=== PATIENT | female | born 1945 | race Asian ===

== ENCOUNTER 2022-05-20 10:45 | Outpatient (CLI) | payer MEDICARE, SELFPAY | END 2022-05-20 10:46 | disposition home or self-care (01) | PROVIDERS: PCP Physician Assistant Medical; Visit Provider Physician Assistant Medical | DX: Z00.00 Encounter for general adult medical examination without abnormal findings (principal); E78.5 Hyperlipidemia, unspecified; I10 Essential (primary) hypertension; E87.6 Hypokalemia; E55.9 Vitamin D deficiency, unspecified | CPT/HCPCS: 80053; 80061; 84443; 87086 ==

== ENCOUNTER 2022-05-28 09:57 | Outpatient (CLI) | payer MEDICARE, SELFPAY ==
--- NOTE | 2022-05-28 10:15 | CRLHL7_ITS ---
For Patients: As a result of the Century Cures Act, medical imaging exams and procedure reports are released immediately into your electronic medical record. You may view this report before your referring provider. If you have questions, please contact your health care provider. Indication: Renal artery stenosis. Comparison: None. Technique: MRI of the abdomen was performed with the following sequences: axial and coronal T2 weighted, axial T2 fat saturated, axial diffusion, axial T1 in and out of phase, axial and coronal 3D T1 weighted before and after intravenous contrast administration. Contrast: 20 mL Dotarem Findings: Kidneys: Enhance symmetrically without hydronephrosis. Moderate right renal artery ostial stenosis. Left renal artery appears widely patent. Liver: Noncirrhotic morphology. Benign-appearing cyst. No suspicious enhancing lesions. Gallbladder: Multiple small T2 hyperintense mural cystic lesions without abnormal enhancement predominantly at the gallbladder fundus most consistent with adenomyomatosis. Biliary system: No biliary distention, filling defect, mass or stricture. Other abdominal organs: Spleen, pancreas, and adrenal glands are without concerning focal pathology. Bone marrow signal: Normal Other findings: No lymphadenopathy or ascites Impression: 1. Moderate right renal artery ostial stenosis. Left renal artery appears patent without evidence for stenosis. 2. Mural cystic lesions predominantly within the gallbladder fundus most consistent with gallbladder adenomyomatosis. Dictated by Neftaly Mcgregor MD @ 05/28/2022 1:27:03 PM (Electronically Signed)
== END 2022-05-28 09:58 | disposition home or self-care (01) ==
PROVIDERS: PCP Physician Assistant Medical; Visit Provider Physician Assistant Medical
DX: I70.1 Atherosclerosis of renal artery (principal); K80.20 Calculus of gallbladder without cholecystitis without obstruction; I10 Essential (primary) hypertension
CPT/HCPCS: 74185; A9575

== ENCOUNTER 2022-10-16 13:08 | Outpatient (CLI) | payer MEDICARE, SELFPAY | END 2022-10-16 13:09 | disposition home or self-care (01) | LOC: NFLDREF 10-19 09:58 | PROVIDERS: PCP Physician Assistant Medical; Referring Provider Physician Assistant Medical; Visit Provider Physician Assistant Medical | DX: R79.89 Other specified abnormal findings of blood chemistry (principal); Z11.59 Encounter for screening for other viral diseases; Z11.3 Encounter for screening for infections with a predominantly sexual mode of transmission | CPT/HCPCS: 80076; 86703; 86803 ==

== ENCOUNTER 2023-05-22 10:39 | Outpatient (CLI) | payer MEDICARE, SELFPAY | END 2023-05-22 10:40 | disposition home or self-care (01) | PROVIDERS: PCP Physician Assistant Medical; Visit Provider Physician Assistant Medical | DX: Z00.00 Encounter for general adult medical examination without abnormal findings (principal); R79.89 Other specified abnormal findings of blood chemistry; E55.9 Vitamin D deficiency, unspecified; E87.6 Hypokalemia; E78.5 Hyperlipidemia, unspecified; I10 Essential (primary) hypertension; M81.0 Age-related osteoporosis without current pathological fracture; Z13.0 Encounter for screening for diseases of the blood and blood-forming organs and certain disorders involving the immune mechanism; Z13.6 Encounter for screening for cardiovascular disorders; Z13.1 Encounter for screening for diabetes mellitus | CPT/HCPCS: 80053; 80061; 84443; 87086 ==

== ENCOUNTER 2023-06-11 10:39 | Outpatient (CLI) | payer MEDICARE, SELFPAY ==
--- OUTSIDE RECORDS SUMMARY | 2023-06-11 10:42 | XMS_ITS | Clinical Summary ---
Author Name Unknown Organization [facility] Address [address] [place] [address] Care Team Providers Care Food Assembler Commissary Kitchen Name Role Phone Unavailable Primary Care Provider Unavailabl e Source Comments Patient records contain information from all sites at [facility]. For routine questions regarding patient records, call [phone] during business hours, M-F 8:00 AM - 5:00 PM Central Time. Record requests for emergency care only can be directed to [phone] at any time.[facility] Social History Tobacco Use Types Packs/Day Years Used Date Smoking Tobacco: Never Assessed Nutrition Answer Date Recorded Nutrition: EVOO Fat Source Unknown 06/21 Nutrition: Servings of Fruits/Vegetables per Day Not on file 06/21/2022 Dental Answer Date Recorded Dental: Regular Dentist Unknown 06/22/19 23 Sex and Gender Information Value Date Recorded Sex Assigned at Not on file Gender Identity Not on file Sexual Orientation Not on file Plan of Treatment Health Maintenance Due Date Last Done Comments Hepatitis C Screening 1945 DTaP,Tdap,and Td Vaccines (1 - Tdap) 1965 Zoster Vaccines (1 of 2) 1996 Pneumococcal vaccine (65+ years) (1 of 1 - PCV) 2011 COVID-19 Vaccine (1 - 2022-24 season) 2022 Influenza Vaccine (#1) 2022 Depression Screening (Annual PHQ-2) 02/24/2023 Fall Risk Screen (Annual) 02/24/2023
--- OUTSIDE RECORDS SUMMARY | 2023-06-11 10:42 | XMS_ITS | Referral Summary ---
Author Name Unknown Organization [facility] Address [address] [place] [address] Care Team Providers Care Pier Runner Name Role Phone Unavailable Primary Care Provider Unavailabl e Source Comments Patient records contain information from all sites at [facility]. For routine questions regarding patient records, call [phone] during business hours, M-F 8:00 AM - 5:00 PM Central Time. Record requests for emergency care only can be directed to [phone] at any time.[facility] Social History Tobacco Use Types Packs/Day [...] Orientation Not on file Plan of Treatment Not on file
--- OUTSIDE RECORDS SUMMARY | 2023-06-11 10:42 | XMS_ITS ---
Author Name Unknown Organization [facility] Address [address] [place] [address] Care Team Providers Care Foundry Patternmaker Name Role Phone Unavailable Unavailable Unavailable Surgery Details Not on file Complications Check Surgery Details section. Procedure Estimated Blood Loss Check Surgery Details section. Procedure Findings Check Surgery Details section. Procedure Specimens Taken Check Surgery Details section.
--- NOTE | 2023-06-11 11:00 | US_ITS ---
Patient: THA MYERS Facility:?[facility] Patient ID:?[id number] Site Patient ID:?[id number]. Site :?1945 Study:?US-Abdomen -06/11/2023 1:07:46 PM Ordering Physician:?Erica Aquino Final Report: INDICATION: Renal artery stenosis TECHNIQUE: Grayscale, color Doppler and power Doppler evaluation of the kidneys and renal arteries performed. COMPARISON: MR angiogram 05/28/2022 FINDINGS: BILATERAL RENAL ARTERY DUPLEX ULTRASOUND ABDOMINAL AORTA: Peak systolic velocity = 50 cm/s. No aortic aneurysm. RIGHT KIDNEY: 9.5 cm in length. There is no hydronephrosis. Renal cortex measures 1.2 cm. Peak systolic velocity = 118 cm/second. There is blunting and spectral broadening of the waveform at the origin. Right renal artery measures 3 millimeters at the origin. Renal artery to aortic peak systolic velocity ratio = 2.4 Resistive indices: 0.7 Renal vein = patent LEFT KIDNEY: 9.8 cm in length. There is no hydronephrosis. Renal cortex measures 1.2 cm. Peak systolic velocity = 178 cm/second at the origin. Left renal artery measures 6 millimeters at the origin. Renal artery to aortic peak systolic velocity ratio = 3.6 Resistive indices: 0.6-0.7 Renal vein = patent Incidental simple cyst in the right hepatic lobe measures 2.3 x 2.1 x 2.6 cm. IMPRESSION: Blunting of the waveform with spectral broadening at the origin of the right renal artery corresponding to the ostial stenosis on prior MR angiogram. However, the velocity measurement is not elevated measuring 118 cm/second. Elevated velocity at the left renal artery origin measuring 178 cm/second with a renal artery ratio is 3.6 suggesting possible stenosis. Dictated by Mario Mcmullen MD @ 06/11/2023 1:16:46 PM Signed by:?Mario Mcmullen MD @06/11/2023 1:16:46 PM (Electronic Signature)
== END 2023-06-11 10:40 | disposition home or self-care (01) ==
LOC: US 10:40
PROVIDERS: PCP Physician Assistant Medical; Visit Provider Internal Medicine Nephrology
DX: I70.1 Atherosclerosis of renal artery (principal); I10 Essential (primary) hypertension
CPT/HCPCS: 76775; 93975

== ENCOUNTER 2023-06-18 10:49 | Outpatient (CLI) | payer MEDICARE, SELFPAY ==
--- OUTSIDE RECORDS SUMMARY | 2023-06-18 10:58 | XMS_ITS | Clinical Summary ---
Author Name Unknown Organization [facility] Address [address] [place] [address] Care Team Providers Care Store Stock Help Name Role Phone Unavailable Primary Care Provider Unavailabl e Source Comments Patient records contain information from all sites at [facility]. For routine questions regarding patient records, call [phone] during business hours, M-F 8:00 AM - 5:00 PM Central Time. Record requests for emergency care only can be directed to [phone] at any time.[facility] Social History Tobacco Use Types Packs/Day [...]
--- OUTSIDE RECORDS SUMMARY | 2023-06-18 10:58 | XMS_ITS | Referral Summary ---
Author Name Unknown Organization [facility] Address [address] [place] [address] Care Team Providers Care Quartz Mounter Name Role Phone Unavailable Primary Care Provider Unavailabl e Source Comments Patient records contain information from all sites at [facility]. For routine questions regarding patient records, call [phone] during business hours, M-F 8:00 AM - 5:00 PM Central Time. Record requests for emergency care only can be directed to [phone] at any time.[facility] Social History Tobacco Use Types Packs/Day Years [...]
--- OUTSIDE RECORDS SUMMARY | 2023-06-18 10:58 | XMS_ITS ---
Author Name Unknown Organization [facility] Address [address] [place] [address] Care Team Providers Care Motor Builder Assembler Name Role Phone Unavailable Unavailable Unavailable Surgery Details Not on file Complications Check Surgery Details section. Procedure Estimated Blood Loss Check Surgery Details section. Procedure Findings Check Surgery Details section. Procedure Specimens Taken Check Surgery Details section.
--- NOTE | 2023-06-18 11:00 | XR_ITS ---
Patient: THA MYERS Facility:?[facility] Patient ID:?[id number] Site Patient ID:?[id number]. Site :?1945 Study:?DEXA-Bone Density -06/18/2023 12:06:43 PM Ordering Physician:DIEGO Final Report: DXA BONE MINERAL DENSITY STUDY Reason for exam: Screening. Current height (in): 61.0. Weight (lb): 120.0. Menopause age: 51. Ethnicity: A (per patient questionnaire). 1. Have you had a previous hip or vertebral fracture? No. 2. Have you had any fractures during your adult life which did not result from significant trauma (e.g., auto accident)? No. 3. Did either of your parents have a hip fracture? No. 4. Do you smoke? No. 5. Have you ever taken Glucocorticoids? No. 6. Do you have rheumatoid arthritis? No. 7. Do you have secondary osteoporosis? No. 8. Do you drink 3 or more alcoholic drinks per day? No. 9. Are you being treated for osteoporosis? No. 10. Have you ever taken any of the following medications: Actonel, Evista, Fosamax, Miacalcin, Reclast, Boniva, Forteo, HRT (i.e. estrogen/hormone therapy), Protelos, Prolia, Vitamin D, Calcium, other ? please specify. ANSWER: Yes, Fosamax, vitamin D, multivitamin, Prolia, calcium. 11. Do you have any of the following medical conditions: Anorexia or bulimia, asthma or emphysema, end stage renal disease, hyperparathyroidism, any seizure disorders, cancer, inflammatory bowel diseases, hysterectomy, other ? please specify. ANSWER: No. 12. What was your maximum height (inches)? 62. 13. Do you perform weight bearing exercise regularly? Yes. 14. Do you regularly consume dairy products? Yes. 15. Do you drink caffeinated beverages? Yes. 16. At what age did your period start? 14. 17. Are you premenopausal? No. 18. How many full term pregnancies have you had? 1. 19. Have you ever missed your period for more than 6 months in a row (not including or menopause)? No. TECHNIQUE: Bone mineral density study was performed using the [employer]. FINDINGS: The results of the study expressed as bone mineral density (BMD) are as follows: Lumbar spine L1 to L3: BMD: 0.827 g/cm2. T-score: -1.7. Z-score: 0.7. Neck Left: BMD: 0.572 g/cm2. T-score: -2.5. Z-score: -0.3. Right: BMD: 0.603 g/cm2. T-score: -2.2. Z-score: -0.1. Total Left: BMD: 0.792 g/cm2. T-score: -1.2. Z-score: 0.6. Right: BMD: 0.773 g/cm2. T-score: -1.4. Z-score: 0.5. IMPRESSION: Osteoporosis. *Comparison exams done prior to 07/2019 were performed on different unit, [email or web address]. COMPARISON: Compared with scan of 05/17/2021, the bone mineral density has increased by 2.7 percent at the spine and increased by 1.0 percent at the hip. Compared with scan of 03/09/2018, the bone mineral density has increased by 0.8 percent at the spine and increased by 4.2 percent at the hip. Mario Mcmullen M.D. Diagnostic Radiologist [email or web address] [email or web address]/[email or web address] / be/Dictated by: Mario Mcmullen MD @ 06/19/2023 8:18:00 AM Signed by:?Mario Mcmullen MD @06/20/2023 11:26:40 AM (Electronic Signature)
== END 2023-06-18 10:50 | disposition home or self-care (01) ==
LOC: RAD 10:54
PROVIDERS: PCP Physician Assistant Medical; Visit Provider Physician Assistant Medical
DX: Z13.820 Encounter for screening for osteoporosis (principal); M81.0 Age-related osteoporosis without current pathological fracture
CPT/HCPCS: 77080

== ENCOUNTER 2023-09-09 09:25 | Outpatient (CLI) | payer MEDICARE, SELFPAY ==
--- OUTSIDE RECORDS SUMMARY | 2023-09-12 01:21 | XMS_ITS | Referral Summary ---
Author Organization [facility] Address [address] [place] [address] Care Team Providers Care Receptionist/Telephone Operator Name Role Phone Unavailable Primary Care Provider Unavailabl e Source Comments Patient records contain information from all sites at [facility]. For routine questions regarding patient records, call [phone] during business hours, M-F 8:00 AM - 5:00 PM Central Time. Record requests for emergency care only can be directed to [phone] at any time.[facility] Encounters Date Type Department Care Team Description 07/16/2023 10:00 AM CDT External Outreach Division of Nephrology and Hypertension in [place], [place] [address] [place] [address] Erica Aquino M.D., Ph.D. Hypertension Renovascular (Primary Dx) from Last 3 Months Social History Tobacco Use Types Packs/Day Years Used Date Smoking Tobacco: Never Assessed Nutrition Answer Date Recorded Nutrition: EVOO Fat Source Unknown 06/21 Nutrition: Servings of Fruits/Vegetables per Day Not on file 06/21/2022 Dental Answer Date Recorded Dental: Regular Dentist Unknown 06/22/19 Sex and Gender Information Value Date Recorded Sex Assigned at Not on file Gender Identity Not on file Sexual Orientation Not on file Plan of Treatment Not on file
--- OUTSIDE RECORDS SUMMARY | 2023-09-12 01:21 | XMS_ITS ---
Author Organization [facility] Address [address] [place] [address] Care Team Providers Care Screen Tender Name Role Phone Unavailable Unavailable Unavailable Surgery Details Not on file Complications Check Surgery Details section. Procedure Estimated Blood Loss Check Surgery Details section. Procedure Findings Check Surgery Details section. Procedure Specimens Taken Check Surgery Details section.
--- OUTSIDE RECORDS SUMMARY | 2023-09-12 01:21 | XMS_ITS | Clinical Summary ---
Author Organization [facility] Address [address] [place] [address] Care Team Providers Care Scow Hand Name Role Phone Unavailable Primary Care Provider Unavailabl e Source Comments Patient records contain information from all sites at [facility]. For routine questions regarding patient records, call [phone] during business hours, M-F 8:00 AM - 5:00 PM Central Time. Record requests for emergency care only can be directed to [phone] at any time.[facility] Encounters Date Type Department Care Team Description 07/16/2023 10:00 AM CDT External Outreach Division of Nephrology and Hypertension in [place], [place] [address] [place] [address] Erica Aquino M.D., Ph.D. Hypertension Renovascular (Primary [...] COVID-19 Vaccine (1 - 2022-24 season) 2022 Depression Screening (Annual PHQ-2) 02/24/2023 Fall Risk Screen (Annual) 02/24/2023 Influenza Vaccine (#1) 2023
--- OUTSIDE RECORDS SUMMARY | 2023-09-12 01:21 | XMS_ITS | Encounter Summary ---
Author Organization [facility] Address [address] [place] [address] Care Team Providers Care Medical Records Director Name Role Phone Unavailable Primary Care Provider Unavailabl e Reason for Visit * Appointment Request (Routine) - Closed Specialty Diagnoses / Procedures Referred By Contkeith t Referred To Contact Nephrology and Hypertension Referral ID Status Reason Start Date Expiration Date Visits Re quested Visits Authorized [id number] Closed 06/05/2023 06/04/2024 1 1 Encounter Details Date Type Department Care Team (Latest Contact Info) Description 07/16/2023 10:00 AM CDT External Outreach Division of Nephrology and Hypertension in [place], [place] [address] [place] [address] Erica Aquino M.D., Ph.D. [address] [place] [address] Hypertension Renovascular (Primary Dx) Social History Tobacco Use Types Packs/Day Years [...] on file Sexual Orientation Not on file documented as of this encounter Progress Notes * Erica Aquino M.D., Ph.D. - 07/16/2023 10:00 AM CDT SUBJECTIVE CHIEF COMPLAINT / REASON FOR VISIT Renovascular hypertension [place] [facility] Outreach Visit Location: [facility] HISTORY OF PRESENT ILLNESS Heather Arriaza is a 77 y.o. female with known history of right renal artery stenosis diagnosed in 2005,prior MRI showing 50-60% stenosis. BP management with HCTZ 25 mg daily for many years. Patient checks her BP at home and ranges in the 130s-140s/ 70s-80s, sporadically in the 110s-120s. She takes her HCTZ at nighttime. She does not have nocturia. She keeps an active living. Monitors her weight and BP at home. She follows a low salt diet, and eats a balance diet with fruits and vegetables. She had an MRI 2022 by her PCP to monitor her KURTIS, which shows moderate stenosis on right renal artery. Her baseline creatinine is 0.8 mg/dL Patient has not noticed any lightheadedness, dizziness, vision changes, diaphoresis, chest pain, difficulty breathing, or edema. Patient has not noticed any changes in urinary habits. No hesitancy tourinate, no difficulty to urinate. NO other significant past medical or surgical history. Non smoker, no alcohol use. No family history of CKD REVIEW OF SYSTEMS All other systems were reviewed and are negative, rest as per HPI. OBJECTIVE BP 143/77 Pulse 67 PHYSICAL EXAMINATION General: No acute distress, breathing comfortably. Neuro: No focal deficits. Alert and oriented X 4. Skin: Warm. No rashes. Psych: Answers questions appropriately. No signs of anxiety or depression noted. DIAGNOSTICS Labs: I have reviewed available labs in detail with patient. ASSESSMENT / PLAN #1 Hypertension Renovascular Patient returns for follow up. She had renal ultrasound with doppler which showed stable right and left KURTIS. Her kidney function has remained unchanged, with her creatinine at baseline of 0.8. UA done in April 2023 showed 2+ blood, no RBCs, leukocyte esterase and few bacteria. I recommended to repeat it butdue to no symptoms and stable kidney function, patient prefer to repeat it in 6 months during her follow up visit. Her BP goal is systolic readings between 100-130 mmHg and diastolic readings between 60-80 mmHg. Today in clinic her BP is elevated. She states at home it fluctuates. I have recommended patient to check BP regularly at home, to keep a record of blood pressure readings. If BP is still not at goal, medications should be adjusted. I have recommended to start ESPINOZA-i or ARB. She would like to wait 6 months, as she is planning to start an exercise routine to see if this helps to control her BP better.Of note, she used to be on lisinopril in the past and as per her report this was discontinued because her BP was at goal without it. She may require to restart this medication, we will revisit this in 6 months. She will contact us if her BP is elevated before that appointment as needed. Patient verbalizes understanding. Follow up in 6 months. Lianna Conner M.D., Ph.D. Nephrology and Hypertension documented in this encounter Plan of Treatment Not on file documented as of this encounter Visit Diagnoses Diagnosis Hypertension Renovascular- Primary documented in this encounter
== END 2023-09-09 09:26 | disposition home or self-care (01) ==
LOC: NFLDREF 09-12 01:19
PROVIDERS: PCP Physician Assistant Medical; Referring Provider Physician Assistant Medical; Visit Provider Physician Assistant Medical
DX: E78.5 Hyperlipidemia, unspecified (principal)
CPT/HCPCS: 80061; 80076

== ENCOUNTER 2023-12-31 09:54 | Outpatient (CLI) | payer MEDICARE, SELFPAY | END 2023-12-31 09:55 | disposition home or self-care (01) | LOC: NFLDREF 01-01 12:50 | PROVIDERS: PCP Physician Assistant Medical; Referring Provider Physician Assistant Medical; Visit Provider Internal Medicine Nephrology | DX: I10 Essential (primary) hypertension (principal); Z11.2 Encounter for screening for other bacterial diseases | CPT/HCPCS: 82043; 82570; 87205 ==

== ENCOUNTER 2024-01-08 14:03 | Outpatient (CLI) | payer MEDICARE, SELFPAY | END 2024-01-08 14:04 | disposition home or self-care (01) | LOC: NFLDREF 01-12 13:54 | PROVIDERS: PCP Physician Assistant Medical; Referring Provider Physician Assistant Medical; Visit Provider Physician Assistant Medical | DX: N39.0 Urinary tract infection, site not specified (principal) | CPT/HCPCS: 87086; 87186 ==

== ENCOUNTER 2024-01-13 11:04 | Outpatient (CLI) | payer MEDICARE, SELFPAY | END 2024-01-13 11:05 | disposition home or self-care (01) | PROVIDERS: PCP Physician Assistant Medical; Visit Provider Internal Medicine Nephrology | DX: I70.1 Atherosclerosis of renal artery (principal); R79.89 Other specified abnormal findings of blood chemistry; E55.9 Vitamin D deficiency, unspecified; E87.3 Alkalosis; I10 Essential (primary) hypertension | CPT/HCPCS: 80069; 84075; 84450; 84460 ==

== ENCOUNTER 2024-05-24 10:13 | Outpatient (CLI) | payer MEDICARE, SELFPAY | END 2024-05-24 10:14 | disposition home or self-care (01) | PROVIDERS: PCP Physician Assistant Medical; Visit Provider Physician Assistant Medical | DX: E78.5 Hyperlipidemia, unspecified (principal); I10 Essential (primary) hypertension; Z13.29 Encounter for screening for other suspected endocrine disorder | CPT/HCPCS: 80053; 80061; 84443 ==

== ENCOUNTER 2024-11-19 10:05 | Outpatient (CLI) | payer MEDICARE, SELFPAY | END 2024-11-19 10:06 | disposition home or self-care (01) | LOC: NFLDREF 11-22 08:40 | PROVIDERS: PCP Physician Assistant Medical; Referring Provider Physician Assistant Medical; Visit Provider Internal Medicine Nephrology | DX: R79.89 Other specified abnormal findings of blood chemistry (principal); N39.0 Urinary tract infection, site not specified; E87.6 Hypokalemia; I70.1 Atherosclerosis of renal artery | CPT/HCPCS: 80069; 82043; 82570; 84450; 84460; 87086 ==

== ENCOUNTER 2024-12-06 10:46 | Outpatient (CLI) | payer MEDICARE, SELFPAY ==
--- NOTE | 2024-12-06 11:15 | CRLHL7_ITS ---
For Patients: As a result of the Century Cures Act, medical imaging exams and procedure reports are released immediately into your electronic medical record. You may view this report before your referring provider. If you have questions, please contact your health care provider. INDICATION: Atherosclerosis of renal artery TECHNIQUE: Grayscale, color Doppler and spectral Doppler evaluation of the renal arteries bilaterally COMPARISON: 06/11/2023 FINDINGS: BILATERAL RENAL ARTERY DUPLEX ULTRASOUND ABDOMINAL AORTA: Peak systolic velocity = 81 cm/s. No aortic aneurysm. RIGHT KIDNEY: 8.7 cm in length. There is no hydronephrosis. Peak systolic velocity = 153 cm/second Renal artery to aortic peak systolic velocity ratio = 1.9 Resistive indices: 0.78 Renal vein = patent LEFT KIDNEY: 9.1 cm in length. There is no hydronephrosis. Peak systolic velocity = 134 cm/second Renal artery to aortic peak systolic velocity ratio = 1.6 Resistive indices: 0.76 Renal vein = patent IMPRESSION: No evidence of significant renal artery stenosis. Dictated by Mario Mcmullen MD @ 12/06/2024 8:49:21 PM (Electronically Signed)
== END 2024-12-06 10:47 | disposition home or self-care (01) ==
LOC: US 10:46
PROVIDERS: PCP Physician Assistant Medical; Visit Provider Internal Medicine Nephrology
DX: I70.1 Atherosclerosis of renal artery (principal)
CPT/HCPCS: 76775; 93975

== ENCOUNTER 2024-12-29 10:12 | Outpatient (CLI) | payer MEDICARE, SELFPAY | END 2024-12-29 10:13 | disposition home or self-care (01) | LOC: NFLDREF 01-03 02:21 | PROVIDERS: PCP Physician Assistant Medical; Referring Provider Physician Assistant Medical; Visit Provider Internal Medicine Nephrology | DX: I15.0 Renovascular hypertension (principal) | CPT/HCPCS: 80069 ==